=== PATIENT | female | born 1975 | race Caucasian/White ===

== ENCOUNTER 2017-04-30 14:47 | Emergency (ER) | payer OTHER ==
[~2017-04-30] VITALS: Ht 172.7 cm; Wt 90.3 kg
--- NOTE | 2017-04-30 16:16 | ED GI/GU/ABDOMINAL COMPLAINT ---
History of Present Illness General Chief Complaint: General Adult Stated Complaint: "I HAVE LARGE AMOUNT OF KIDNEY PAIN" Source: patient, family Exam Limitations: no limitations Vital Signs & Intake/Output Vital Signs & Intake/Output Vital Signs Date Time Temp Pulse Resp B/P B/P Pulse O2 O2 Flow FiO2 Mean Ox Delivery Rate 04/30 1916 98.2 78 18 133/87 98 Room Air 04/30 1903 98.4 76 18 131/74 98 Room Air 04/30 1803 98.1 69 18 131/83 98 Room Air 04/30 1550 98 Room Air 04/30 1506 99.9 86 20 126/89 97 Room Air Allergies Coded Allergies: latex (ITCHY 04/30/17) Reconcile Medications Ciprofloxacin HCl (Cipro) 500 MG TABLET 1 TAB PO BID UTI Ciprofloxacin HCl (Cipro) 500 MG TABLET 1 TAB PO BID uti Tamsulosin HCl (Flomax) 0.4 MG CAP.ER.24H 1 CAP PO DAILY STONE Tamsulosin HCl (Flomax) 0.4 MG CAP.ER.24H 1 CAP PO DAILY stones Tramadol HCl 50 MG TABLET 1 TAB PO BIDP PRN PAIN Tramadol HCl 50 MG TABLET 1 TAB PO BIDP PRN pain Triage Note: LEFT FLANK PAIN RADIATING INTO LEFT ABDOMEN SINCE YESTERDAY. PT STATES SHE HAS HAD FREQUENT KIDNEY STONES Triage Nurses Notes Reviewed? yes ? N Is pt currently ? No Onset: Gradual Duration: hour(s): Timing: recent history Quality/Severity: moderate Location: left flank Radiation: groin Prior Abdominal Problems: similar symptoms HPI: 41yo female with hx of kidney stones s/p lithrotripsy years ago presents to ED complaining of left flank pain radiating to bladder/groin beginning last night. Patient reports pain is slowly worsening, described as severe, scratching, 6-8/ 10. Patient has had similar pain in this location in the past at which time she had multiple kidney stones. The patient sees a urologist in [place]. Patient also complaining of nausea. She denies fevers, dysuria, hematuria, vomiting, diarrhea. (Shira HUNTER,Denice Roach) Past History Travel History Traveled to [place] past 21 day No Medical History Any Pertinent Medical History? see below for history Cardiovascular: hypertension Renal: KIDNEY STONES Surgical History Surgical History: non-contributory Psychosocial History What is your primary language Maori Tobacco Use: Never used ETOH Use: occasional use Illicit Drug Use: denies illicit drug use Family History Hx Contributory? No (Denice Reyes) Review of Systems Review of Systems Constitutional: Reports: no symptoms. EENTM: Reports: no symptoms. Respiratory: Reports: no symptoms. Cardiovascular: Reports: no symptoms. GI: Reports: see HPI. Genitourinary: Reports: see HPI. Musculoskeletal: Reports: no symptoms. Skin: Reports: no symptoms. Neurological/Psychological: Reports: no symptoms. Hematologic/Endocrine: Reports: no symptoms. Immunologic/Allergic: Reports: no symptoms. All Other Systems: Reviewed and Negative (Denice Reyes) Physical Exam Physical Exam General Appearance: well developed/nourished, no apparent distress, alert, awake Head: atraumatic, normal appearance Eyes: Bilateral: normal appearance. Ears, Nose, Throat, Mouth: hearing grossly normal Neck: normal inspection, supple, full range of motion Respiratory: normal breath sounds, no respiratory distress, lungs clear Cardiovascular: regular rate/rhythm Gastrointestinal: normal bowel sounds, soft, no organomegaly, LUQ, LLQ, suprapubic tenderness Back: normal inspection, normal range of motion, left CVA tenderness Extremities: normal range of motion Neurologic/Psych: awake, alert, oriented x 3 Skin: intact, normal color, warm/dry Core Measures ACS in differential dx? No Sepsis Present: No Sepsis Focused Exam Completed? No (Denice Reyes) Progress Differential Diagnosis: appendicitis, bowel obstruction, diverticulitis, ectopic , gastritis, hernia, inflamm bowel dis, kidney stone, ovarian cyst, ovarian torsion, pancreatitis, SBO, UTI/pyelo Plan of Care: Orders Procedure Date/time Status Add-on Test (ER Only) 04/30 1847 Active CULTURE,URINE 04/30 1515 Active URINE 04/30 1505 Complete URINALYSIS 04/30 1505 Complete COMPREHENSIVE METABOLIC PANEL 04/30 1505 Complete CBC WITHOUT DIFFERENTIAL 04/30 1505 Complete Laboratory Tests 04/30/17 1620: Anion Gap 14, Estimated GFR > 60, BUN/Creatinine Ratio 20.0, Glucose 95, Calcium 10.6 H, Total Bilirubin 0.7, AST 17, ALT 23, Alkaline Phosphatase 50, Total Protein 7.9, Albumin 4.8, Globulin 3.1, Albumin/Globulin Ratio 1.5, CBC w Diff NO MAN DIFF REQ, RBC 5.41 H, MCV 82.6, MCH 27.3, MCHC 33.1, RDW 14.1, MPV 10.9 H, Gran % 67.8, Lymphocytes % 24.3, Monocytes % 5.8, Eosinophils % 1.6, Basophils % 0.5, Absolute Granulocytes 4.5, Absolute Lymphocytes 1.6, Absolute Monocytes 0.4, Absolute Eosinophils 0.1, Absolute Basophils 0 04/30/17 1515: Urinalysis LIGHT H, Urine Color YEL, Urine Clarity CLDY H, Urine pH 6.0, Ur Specific [place] 1.025, Urine Protein 30 H, Urine Ketones 40 H, Urine Nitrite NEG, Urine Bilirubin NEG, Urine Urobilinogen 0.2, Ur Leukocyte Esterase SMALL H , Ur Microscopic SEDIMENT EXAMINED, Urine RBC 25-50 H, Urine WBC 5-10 H, Ur Epithelial Cells MANY H, Urine Bacteria PACKD H, Urine Mucus MOD H, Urine Hemoglobin LARGE H, Urine Glucose NEG, Urine Test NEGATIVE Microbiology 04/30 1515 URINE ROUT: Urine Culture - RECD Patient reports her pain has currently resolved following IV Toradol and morphine. Patient's CT scan shows 0.6 cm stone in distal left ureter with moderate hydronephrosis. Patient's vital signs are stable, her blood work is without acute abnormality, no leukocytosis, renal function within normal limits. UA shows RBCs in white blood cells. Spoke with Dr. Linda menon regarding this patient. He recommends uRINE CULTURE, pain control, follow-up in the office as an outpatient. Will treat patient with antibiotics given patient's UA. The patient agrees with this plan. She will return with any worsening symptoms or concerns. The patient was discussed with Dr. Woody who agrees with this plan. Diagnostic Imaging: Viewed by Me: CT Scan. Discussed w/RAD: CT Scan. Radiology Impression: PATIENT: MOR BUNCH PRESENT AGE: 41 PATIENT ACCOUNT NO: [id number] : 76 LOCATION: [facility] ORDERING PHYSICIAN: Denice HUNTER SERVICE DATE: 04/30/17 EXAM TYPE: CAT - CT ABD & PELVIS W/O IV CONTRAS EXAMINATION: CT ABDOMEN AND PELVIS WITHOUT CONTRAST CLINICAL INFORMATION: Left flank pain radiating to the groin. Evaluate for kidney stone and hydronephrosis. COMPARISON: None TECHNIQUE: Multidetector volumetric imaging was performed from the superior aspect of the liver through the pubic symphysis. Sagittal and coronal reformatted images were obtained on the technologist's workstation. DLP: 460 mGy-cm FINDINGS: LUNG BASES: No acute findings. Small, 0.3 cm calcified granuloma within the left lower lobe. LIVER, GALLBLADDER, AND BILIARY TREE: Liver has normal size and contour. Punctate calcified granuloma is present in the right hepatic lobe. Gallbladder is unremarkable. No intrahepatic or extrahepatic bile duct dilatation. PANCREAS: Unremarkable. SPLEEN: Unremarkable. ADRENAL GLANDS: Unremarkable. RIGHT KIDNEY AND URETER: The kidney is normal in size. There are multiple calyceal stones. Largest calyceal stone (or cluster of stones) in the lateral right lower pole measures up to 0.8 cm, and there is focal thinning/scarring of overlying cortex in this region. The right ureter is unremarkable. LEFT KIDNEY AND URETER: Multiple calyceal stones of the left kidney, largest in the upper pole measuring up to 0.6 cm, and there is thinning of cortex in this region. Moderate left hydroureteronephrosis is caused by an obstructing 0.6 cm calculus of the distal left ureter positioned approximately 3.5 cm above the level of the ureterovesical junction. BLADDER: Unremarkable. GASTROINTESTINAL TRACT: Bowel loops are normal in size. Appendix is normal. There are colonic diverticula without diverticulitis. No ascites or pneumoperitoneum. ABDOMINAL WALL: Small fat-containing umbilical hernia measures 0.7 cm wide. LYMPH NODES: No pathologic sized lymph nodes within the abdomen or pelvis. VASCULAR: Unremarkable for a noncontrast examination. PELVIC VISCERA: The uterus and adnexa are grossly normal. No pelvic free fluid. Multiple phleboliths are present within the lower pelvis. OSSEOUS STRUCTURES: Chronic L5 spondylolysis with 0.6 cm of grade 1 anterolisthesis of L5 on S1. [id number] disc space narrowing and vacuum disc phenomenon at L5-S1. Nonaggressive sclerotic focus in the left sacrum, consistent with a bone island. IMPRESSION: 1. Multiple bilateral renal calculi. 2. Moderate left hydroureteronephrosis caused by an obstructing 0.6 cm stone in the distal ureter. 3. L5 spondylolysis with grade 1 anterolisthesis of L5 on S1. DICTATED BY: Napoleon Sawyer MD DATE/TIME DICTATED:04/30/171749 DETONATOR ASSEMBLER:JOSE DATE/TIME TRANSCRIBED:04/30/171749 CONFIDENTIAL, DO NOT COPY WITHOUT APPROPRIATE AUTHORIZATION. <Electronically signed in Other Vendor System> SIGNED BY: Napoleon Sawyer MD 04/30/171803 Initial ED EKG: none (Shira HUNTER,Denice Roach) Departure Departure Disposition: HOME OR SELF CARE Condition: Stable Clinical Impression Primary Impression: Kidney stone Secondary Impressions: Hydronephrosis Qualifiers: Hydronephrosis type: with renal calculous obstruction Qualified Code: N13.2 - Hydronephrosis with renal and ureteral calculous obstruction Referrals: Saadia Cameron MD (PCP/Family) Additional Instructions: As discussed, follow-up with urology, call the office on Monday to make an appointment for this week. Take medications as prescribed. Return to the emergency department if any worsening symptoms or other concerns. Please note that there might be incidental findings in your evaluation that are unrelated to the current emergency department visit. Please notify your primary care doctor about this emergency department visit in order to obtain and review all of the testing performed so that these incidental findings can be monitored as needed. If you had an x-ray performed, please understand that some fractures may not be seen on the initial set of x-rays. If your symptoms persist you might need a repeat set of x-rays to check for such a fracture. If you had a laceration evaluated, please understand that foreign bodies such as glass or wood may not be visible to the naked eye or on plain x-rays. If the wound becomes red, swollen, increasingly more painful or if there is any drainage from the wound, please have it reevaluated by a physician for the possibility of a retained foreign body. If you're unable to follow up as outlined in the discharge instructions please return to the emergency department. Thank you for choosing the [facility] Emergency Department for your care. It was a pleasure to serve you today. Departure Forms: Customer Survey General Discharge Information Prescriptions: Current Visit Scripts Tramadol HCl 1 TAB PO BIDP PRN PAIN #10 TAB Ciprofloxacin HCl (Cipro) 1 TAB PO BID #10 TAB Tamsulosin HCl (Flomax) 1 CAP PO DAILY #14 CAP Tramadol HCl 1 TAB PO BIDP PRN pain #10 TAB Tamsulosin HCl (Flomax) 1 CAP PO DAILY #14 CAP Ciprofloxacin HCl (Cipro) 1 TAB PO BID #10 TAB (Shira HUNTER,Denice Roach) PA/LAND MEASURER Co-Sign Statement Statement: ED Attending supervision documentation- [] I saw and evaluated the patient. I have also reviewed all the pertinent lab results and diagnostic results. I agree with the findings and the plan of care as documented in the PA's/LAND MEASURER's documentation. [X] I have reviewed the ED Record and agree with the PA's/LAND MEASURER's documentation. [] Additions or exceptions (if any) to the PAs/LAND MEASURER's note and plan are summarized below: [] (Annalise PUGH,Abdirahman Ellsworth)
[2017-04-30 16:28] LABS: ABSOLUTE BASOPHIL COUNT 0 /CUMM (0.0-0.2); ABSOLUTE EOSINOPHIL COUNT 0.1 /CUMM (0.0-0.7); ABSOLUTE GRANULOCYTE CT 4.5 /CUMM (1.4-6.5); ABSOLUTE LYMPH COUNT 1.6 /CUMM (1.2-3.4); ABSOLUTE MONOCYTE COUNT 0.4 /CUMM (0.10-0.60); BASOPHIL % 0.5 % (0.0-2.0); EOSINOPHIL % 1.6 % (0-5); GRANULOCYTE % 67.8 % (42.2-75.2); HEMATOCRIT 44.7 % (37-47); MEAN CORPUSCULAR HGB 27.3 PG (27.0-31.0); MEAN CORPUSCULAR HGB CONC 33.1 G/DL (33.0-37.0); MEAN CORPUSCULAR VOLUME 82.6 FL (81.0-99.0); MEAN PLATELET VOLUME 10.9 FL (7.4-10.4); PLATELET COUNT 250 /CUMM (130-400); RBC DISTRIBUTION WIDTH 14.1 % (11.5-14.5); RED BLOOD CELL CT 5.41 /CUMM (4.20-5.40); WHITE BLOOD CELL COUNT 6.6 /CUMM (4.8-10.8)
--- NOTE | 2017-04-30 18:04 | CT SCAN REPORT ---
EXAMINATION: CT ABDOMEN AND PELVIS WITHOUT CONTRAST CLINICAL INFORMATION: Left flank pain radiating to the groin. Evaluate for kidney stone and hydronephrosis. COMPARISON: None TECHNIQUE: Multidetector volumetric imaging was performed from the superior aspect of the liver through the pubic symphysis. Sagittal and coronal reformatted images were obtained on the technologist's workstation. DLP: 460 mGy-cm FINDINGS: LUNG BASES: No acute findings. Small, 0.3 cm calcified granuloma within the left lower lobe. LIVER, GALLBLADDER, AND BILIARY TREE: Liver has normal size and contour. Punctate calcified granuloma is present in the right hepatic lobe. Gallbladder is unremarkable. No intrahepatic or extrahepatic bile duct dilatation. PANCREAS: Unremarkable. SPLEEN: Unremarkable. ADRENAL GLANDS: Unremarkable. RIGHT KIDNEY AND URETER: The kidney is normal in size. There are multiple calyceal stones. Largest calyceal stone (or cluster of stones) in the lateral right lower pole measures up to 0.8 cm, and there is focal thinning/scarring of overlying cortex in this region. The right ureter is unremarkable. LEFT KIDNEY AND URETER: Multiple calyceal stones of the left kidney, largest in the upper pole measuring up to 0.6 cm, and there is thinning of cortex in this region. Moderate left hydroureteronephrosis is caused by an obstructing 0.6 cm calculus of the distal left ureter positioned approximately 3.5 cm above the level of the ureterovesical junction. BLADDER: Unremarkable. GASTROINTESTINAL TRACT: Bowel loops are normal in size. Appendix is normal. There are colonic diverticula without diverticulitis. No ascites or pneumoperitoneum. ABDOMINAL WALL: Small fat-containing umbilical hernia measures 0.7 cm wide. LYMPH NODES: No pathologic sized lymph nodes within the abdomen or pelvis. VASCULAR: Unremarkable for a noncontrast examination. PELVIC VISCERA: The uterus and adnexa are grossly normal. No pelvic free fluid. Multiple phleboliths are present within the lower pelvis. OSSEOUS STRUCTURES: Chronic L5 spondylolysis with 0.6 cm of grade 1 anterolisthesis of L5 on S1. [id number]-[id number] disc space narrowing and vacuum disc phenomenon at L5-S1. Nonaggressive sclerotic focus in the left sacrum, consistent with a bone island. IMPRESSION: 1. Multiple bilateral renal calculi. 2. Moderate left hydroureteronephrosis caused by an obstructing 0.6 cm stone in the distal ureter. 3. L5 spondylolysis with grade 1 anterolisthesis of L5 on S1.
[2017-04-30] MEDS ORDERED: FLOMAX0.4 M1 PO ×2 (18:58→19:42)
[2017-04-30] MEDS ORDERED: TRAMADOL HCL50 M1 PO ×2 (18:58→19:42)
[2017-04-30] MEDS ORDERED: CIPRO500 M1 PO ×2 (18:58→19:42)
[2017-04-30 19:17] VITALS: BP 133/87
== END 2017-04-30 19:09 ==
LOC: ERH 14:47
PROVIDERS: Physician Assistant Medical
DX: N13.2 Hydronephrosis with renal and ureteral calculous obstruction (principal)
CPT/HCPCS: 74176; 81001; 81025; 87086; 96374; 96375; J1885